=== PATIENT | female | born 1935 | race American Indian/Alaskan Native ===

== ENCOUNTER 2016-10-23 07:31 | Outpatient (CLI) | payer MEDICARE ==
[2016-10-23] MEDS ORDERED: LEXISCAN IV ONE ×2 (08:16→08:20)
[2016-10-23] MEDS ORDERED: DOBUTamine 100 MG in D5W 92 ML IV SCH (11:00)
--- NOTE | 2016-10-24 23:48 | Treadmill Report ---
DOBUTAMINE ECHOCARDIOGRAM STRESS TEST REASON FOR STUDY: Preoperative cardiac assessment. The patient was administered with dobutamine in incremental doses of 5, 10, 20, and 30 mcg per kilogram per minute. Continuous ECG monitoring was performed during dobutamine infusion. Echocardiography was obtained at baseline, during low dose dobutamine and finally maximum dose dobutamine. The baseline heart rate was 71, and increased to 121. Blood pressure at peak dobutamine infusion was 155/69. There was no chest pain. There were no ST changes of ischemia. No significant dysrhythmias were noted. ECHOCARDIOGRAPHY: At baseline, a 2-dimensional echocardiogram demonstrated normal left ventricular chamber size, mild left ventricular wall thickness, left ventricular systolic function at the lower limits of normal with estimated ejection fraction 50% to 55%. With dobutamine infusion, there was concentric thickening of all left ventricular stevenson, there was an increase in systolic ejection fraction up to 70%. No regional wall motion abnormalities were detected. There was no increase in left ventricular chamber size with dobutamine. CONCLUSION: 1. No chest pain with dobutamine. 2. No ST changes of ischemia on ECG monitoring. 3. No echocardiographic evidence of myocardial ischemia with dobutamine protocol. This is a negative dobutamine echocardiogram exercise test. . [facility]# [id number] CA/NTS
== END 2016-10-23 07:32 | disposition home or self-care (01) ==
LOC: CARD 07:31
PROVIDERS: ATTEND Internal Medicine Cardiovascular Disease
DX: R94.31 Abnormal electrocardiogram [ECG] [EKG] (principal)
CPT/HCPCS: 93017; 93320; 93325; 93350; J1250; J2785